=== PATIENT | male | born 1950 | race Caucasian/White ===

== ENCOUNTER → 2020-09-06 | Outpatient (CLI) | payer OTHER ==
[~2020-09-06] VITALS: Ht 165.1 cm; Wt 78.5 kg
[~2020-09-06] MED LIST: ALEVE220 M1 PO; AMBIEN 10 MG TA10 MG PO; ASPIRIN325 PO; DOXYCYCLIN25 MG/5 ML PO; HYDROCHLOROTH12.5 MG PO; HYDROCHLOROTHIA25 M2 PO; IRBESARTAN300 MG PO; LOTENSIN40 MG PO; METROGEL TOP; METROGEL-VAGINA70 GM; NABUMETONE 500500 M1 PO; NIFEDICAL XL60 MG PO; NORVASC10 MG PO; ROSUVASTATIN CA10 MG PO; TRAMADOL 50 MG50 MG PO; ZOCOR 20 MG TAB20 M1
[2020-09-06 13:21] VITALS: BP 147/80
--- NOTE | 2020-09-06 13:50 | NUR ---
Pain Clinic Assessment: 1. History of Osteoarthritis: Right Lower Extremity History of Rheumatoid Arthritis: Not Applicable 2. Height: 5 ft. 5 in. 165.1 cm. Weight: 173.0 lb. oz. 78.472 kg. Patient's BMI: 28.8 3. Vital Signs: BP: 147/80 Pulse: 63 Resp: 14 Temp: 02 Sat: 97 ECG Mon: 4. Pain Intensity: 8 5. Fall Risk: Dizziness: N Needs help standing or walking: N Fallen in the last 3 months: N Fall risk comments: 6. Patient on Blood Thinner: None 7. History of Hypertension: Y 8. Opioid Therapy greater than 6 weeks: N Opiate Contract Signed: 9. Risk Assessment Tool Provided: LOW 10. Functional Assessment Tool: 11. Recreational Drug Use: Past greater than 3 mos Drug Type: MARIJUANA Tobacco Use: Former Smoker Tobacco Type: Cigarettes Amount or Packs/day: 1 How Many Years: 45 Alcohol Use: Yes Frequency: Daily Quant: 1
--- NOTE | 2020-09-13 08:28 | HPC ---
[facility] [place] [address] [place] [address] PAIN MANAGEMENT CONSULTATION Name: LUCY MASCORRO Room #: REG VIN Cardona#: [id number] Admission: 09/06/20 Attend Phys: Maged Jacobs DO Discharge: Date of : 54 Report #: [id number] THIS REPORT FOR: cc: Stan Jaramillo MD,Maged Lynn MD, DO ~ DATE OF SERVICE: 09/06/2020 REFERRING PHYSICIAN: Stan Jaramillo MD CHIEF COMPLAINT: Right hip pain. HISTORY OF PRESENT ILLNESS: As you know, the patient is a very pleasant 70-year-old male referred to our clinic for right hip pain. He states pain is exacerbated with activity such as walking and standing. He believes his pain began on 08/23/2020. He denies injury or trauma. The patient states he is a very active individual, playing organized softball, pickle ball and other team sports. He remains very active for his age range. He states that he has trialed conservative treatments with [id number] medications, rest, relaxation, but no improvement in symptoms. Due to lack of improvement with conservative treatment options, the patient was referred to our clinic to discuss interventional treatments that might be beneficial. The patient has not had any imaging of the right hip. The patient reports today pain is steady with rhythmic exacerbations of symptoms. He states his pain is aching and throbbing in sensation. He places current pain score at 8/10, daily average is 7/10, worst pain has been is 8/10. The patient states pain is exacerbated with sitting and lying down, improves with lying on the right side and repositioning. He has been referred to our clinic to discuss interventional treatment options for suspected right hip osteoarthritis. ALLERGIES: No reported drug allergies. CURRENT MEDICATIONS: Lovastatin 10 mg per day, hydrochlorothiazide 25 mg per day, irbesartan 300 mg once a day, amlodipine 10 mg once a day, zolpidem 10 mg p.o. at bedtime. PAST MEDICAL HISTORY: 1. Hypertension. 2. Degenerative joint disease. 3. Osteoarthritis. 4. Chronic insomnia. 5. Dyslipidemia. [facility] [address] [place] [address] PAIN MANAGEMENT CONSULTATION Name: LUCY MASCORRO Room #: REG [facility]#: [id number] Admission: 09/06/20 Attend Phys: Maged Jacobs DO Discharge: Date of : 54 Report #: [id number] PAST SURGICAL HISTORY: 1. Cholecystectomy. 2. Appendectomy. 3. Open reduction and internal fixation of an ankle, status post injury. SOCIAL HISTORY: The patient denies tobacco, denies IV drug use. He admits to marijuana use. He admits also to 1 alcohol beverage per day. He is retired, retired about 6 years ago. He is unaccompanied at today's visit. He is not in litigation in regards to pain. He is not collecting disability income. REVIEW OF SYSTEMS: Positive only for changes in bowel movements, insomnia, hypertension, dyslipidemia, sexual difficulty and right hip pain. All other review of systems negative per 12-point review of systems other than those listed in history of present illness. Pain impact score 38/70 indicating moderate interference of daily activities secondary to pain. IMAGING: No imaging available. PQRS: The patient has known arthritic changes of bilateral hips, mildly in the knees and lumbar spine. No rheumatoid arthritis. He is placing current pain score at 8/10. He is not a fall risk, has not had a fall in last 3 months. He is not on blood thinners, but he is treated for hypertension. He is not on chronic opioids, but does have a low to moderate opioid addiction potential based on assessment tool. Pain impact 38/70, moderate interference of daily activities secondary to pain. PHYSICAL EXAMINATION: VITAL SIGNS: Blood pressure 147/80, pulse 63, respiratory rate 14 and unlabored. The patient is 97% on room air. Height 5 feet 5 inches tall, weight 173 pounds, BMI calculated 28.8. GENERAL: Well-developed, well-nourished, well-hydrated 70-year-old male appearing stated age. He is placing current pain score at 8/10. HEENT: Normocephalic, atraumatic. Pupils are round. No anisocoria, no constriction or dilation. Extraocular muscles are intact. NEUROLOGIC: Speech is fluent. LUNGS: Clear, no wheeze, rhonchi or rales. CARDIOVASCULAR: Regular. No appreciable gallop or rub. ABDOMEN: Soft, nontender, nondistended. EXTREMITIES: Show no clubbing, no cyanosis, no edema. MUSCULOSKELETAL: The patient has pain elicited with standing from a seated position over the right hip and into the right groin consistent with right hip pathology. The patient has pain also exacerbated with ambulation. He has a positive Nabil's test. Negative seated straight leg raising. Negative supine straight leg raising. Modified Gaenslen's positive for some axial low back [facility] [address] [place] [address] PAIN MANAGEMENT CONSULTATION Name: LUCY MASCORRO Room #: REG Lázaro Adams#: [id number] Admission: 09/06/20 Attend Phys: Maged Jacobs DO Discharge: Date of : 54 Report #: [id number] pain. Ankle clonus negative. Babinski is negative. He is able to toe walk, heel walk with assistance. ASSESSMENT: 1. Severe right hip osteoarthritis. 2. Right hip pain. 3. Intermittent low back pain. 4. Myofascial pain of the lumbar spine. 5. Lumbar facet arthropathy. PLAN: 1. Based on today's physical exam and history the patient has provided, the description the patient uses in regards to pain as well as location of symptoms, it would appear he is suffering from right hip pathology. The severity of the hip findings by physical exam would appear to be fairly severe. I would recommend evaluation of the right hip with x-ray imaging to confirm the level of pathology that is present. The patient's report of symptoms and distribution of pain is consistent with right hip osteoarthritic changes, though there could be significant joint loss and treatment options would be based on those x-ray findings. We did discuss with the patient treatment options we have available. Following was discussed with the patient today. 2. We discussed physical therapy, stretching exercises and mobility techniques to assist in pain control. We discussed medication management utilizing nonsteroidal anti-inflammatory on a consistent basis. We discussed intra-articular hip injection as a way to treat the symptoms directly. We also discussed total hip arthroplasty, which if his severity of osteoarthritis is as expected by physical examination, there is a strong possibility he would need to undergo total hip arthroplasty. The patient is agreeable to further evaluation and to return for an intra-articular hip injection as early as tomorrow. 3. The patient will undergo x-ray imaging of the right hip today. We will review those findings. We should have those available when the patient returns tomorrow for an intra-articular hip injection. 4. The patient was established an appointment on Saturday, 09/07, to undergo a right intra-articular hip injection under fluoroscopic guidance. We wish to contact the patient's third democrat payer to confirm that authorization can be obtained for him to undergo this procedure. We have plans to see him back tomorrow. We will review the x-ray imaging at that visit. 5. We made no changes in medication management at today's visit. We recommend continuation of current therapy. We may adjust those medications later depending on his efficacy with the intra-articular hip injection. 6. We wish to thank Dr. Jaramillo for the opportunity to see this patient in consultation. We will keep you apprised of response [place] [address] PAIN MANAGEMENT CONSULTATION Name: LUCY MASCORRO Room #: REG CLLázaro Cardona#: [id number] Admission: 09/06/20 Attend Phys: Maged Jacobs DO Discharge: Date of : 54 Report #: [id number] severe right osteoarthritic hip pain. Again, we wish to thank you for the opportunity to see the patient in consultation. <ELECTRONICALLY SIGNED> By: Maged Jacobs DO 09/13/20 0828 [id number] Maged Jacobs DO /juanis
== END ==
LOC: PAIN 06:55
PROVIDERS: ATTEND Anesthesiology Pain Medicine
DX: M16.11 Unilateral primary osteoarthritis, right hip (principal); I10 Essential (primary) hypertension; Z90.49 Acquired absence of other specified parts of digestive tract

== ENCOUNTER → 2020-09-07 | Outpatient (CLI) | payer OTHER ==
[~2020-09-07] VITALS: Ht 165.1 cm; Wt 78.5 kg
[2020-09-07 15:06] VITALS: BP 153/74
--- NOTE | 2020-09-07 15:15 | NUR ---
Pain Clinic Assessment: 1. History of Osteoarthritis: Right Lower Extremity History of Rheumatoid Arthritis: Not Applicable 2. Height: 5 ft. 5 in. 165.1 cm. Weight: 173.0 lb. oz. 78.472 kg. Patient's BMI: 28.8 3. Vital Signs: BP: 153/74 Pulse: 71 Resp: 18 Temp: 02 Sat: 97 ECG Mon: 4. Pain Intensity: 4 5. Fall Risk: Dizziness: N Needs help standing or walking: N Fallen in the last 3 months: N Fall risk comments: 6. Patient on Blood Thinner: None 7. History of Hypertension: Y 8. Opioid Therapy greater than 6 weeks: N Opiate Contract Signed: 9. Risk Assessment Tool Provided: LOW 10. Functional Assessment Tool: 11. Recreational Drug Use: Past greater than 3 mos Drug Type: Tobacco Use: Former Smoker Tobacco Type: Amount or Packs/day: How Many Years: Alcohol Use: Yes Frequency: Quant:
--- NOTE | 2020-09-13 09:40 | HPC ---
[facility] [place] [address] PAIN MANAGEMENT CONSULTATION Name: LUCY MASCORRO Room #: REG VIN Cardona#: [id number] Admission: 09/07/20 Attend Phys: Maged Jacobs DO Discharge: Date of : 54 Report #: [id number] THIS REPORT FOR: cc: Stan Jaramillo MD, Charles W. MD Johnson, James E. DO ~ DATE OF SERVICE: 09/07/2020 REFERRING PHYSICIAN: Stan Jaramillo MD CHIEF COMPLAINT: Right hip pain. HISTORY OF PRESENT ILLNESS: As you know, the patient is a 70-year-old male seen in consultation yesterday for right hip pain. He was complaining of pain level of 3/10, exacerbated with activities. We sent the patient for x-ray imaging, which showed severe right hip osteoarthritis without acute fracture or dislocation, but there was also noted severe joint space narrowing. He returns today to review those findings and to discuss the possibility of undergoing intra-articular hip injection. He is placing his pain around 4/10. Pain is exacerbated with walking and standing, improves with lying down and sitting down. He has not had any changes in medical history since our last visit. He returns today for an intra-articular hip injection. ALLERGIES: No reported drug allergies. CURRENT MEDICATIONS: Zolpidem, amlodipine, irbesartan, hydrochlorothiazide, lovastatin. SOCIAL HISTORY: The patient denies tobacco, alcohol, IV or illicit drug use. He is unaccompanied today. IMAGING: No new imaging available. PQRS: The patient has known arthritic changes of the bilateral hips, lumbar spine. No rheumatoid arthritis. He is placing current pain score 4/10. He is not a fall risk, has not had a fall in last 3 months. He is not on blood thinners, but is treated for hypertension. He is not on chronic opioids and has a low opiate addiction potential. Pain impact today , [id number] interference of daily activities secondary to pain. PHYSICAL EXAMINATION: VITAL SIGNS: Blood pressure 153/74, pulse 71, respiratory rate 18 and unlabored. The patient is 97% on room air. Height 5 feet 5 inches tall, weight 173 pounds and BMI calculated 28.8. GENERAL: Well-developed, well-nourished, well-hydrated 70-year-old male [address] [address] PAIN MANAGEMENT CONSULTATION Name: LUCY MASCORRO Room #: REG VIN Brendan#: [id number] Admission: 09/07/20 Attend Phys: Maged Jacobs DO Discharge: Date of : 54 Report #: [id number] appearing stated age, placing current pain score at 4/10. HEENT: Normocephalic, atraumatic. Pupils equal, round and reactive. EXTREMITIES: Show no clubbing, no cyanosis, no edema. MUSCULOSKELETAL: Lower extremity strength appears symmetrical 5/5. Slight changes in strength with hip flexion on the right when compared to left due to increasing pain. Nabil's test is positive on the right, negative left. Gait is mildly antalgic favoring right lower extremity. ASSESSMENT: 1. Right hip pain. 2. Right hip severe osteoarthritis. PLAN: 1. The patient returns today in followup visit where we have reviewed his recent x-ray imaging. I have advised the patient of the findings of severe right hip joint osteoarthritis and severe right hip joint space narrowing, greatest along the superior lateral margin of the hip with sclerotic changes to the bony structures. The patient and I discussed what those findings mean in the long-term. I do feel ultimately the patient will need total hip arthroplasty. The patient and I discussed this at length today. He is here today to undergo an intra-articular hip injection in hopes of improving pain at this time with plans to possibly move forward with surgery if injections do not provide management of his symptoms. I am in agreement with the patient's plan. I do feel that conservative treatment is best initially. If this is unsuccessful, then move forward with permanent addressing with a total hip arthroplasty. 2. The patient has been advised risks and benefits of an intra-articular hip injection. These risks include but are not necessarily limited to bleeding, bruising, infection, worsening pain, no relief of pain, also risk of temporary or permanent muscle weakness, temporary or permanent joint damage and . The patient states understood and wished to proceed. 3. No medication changes made at today's visit. The patient will continue current medical therapy as prior prescribed. 4. We plan to see the patient back in followup visit on an as needed basis. We are hopeful the injection will provide good and prolonged benefit. We will see him back as needed. DESCRIPTION OF PROCEDURE: Right intra-articular hip injection under fluoroscopic guidance. After obtaining written consent, the patient was taken back to fluoroscopy suite, placed in supine position with pillow under knees for comfort. The image intensifier (C-arm) was then brought into position over the right hip and AP imaging was obtained. Skin overlying the area was then prepped and draped in aseptic fashion using chlorhexidine. A sterile marker was then placed over the injection site. A 27-gauge 1-1/4 inch needle was then used to anesthetize skin [address] [address] PAIN MANAGEMENT CONSULTATION Name: LUCY MASCORRO Room #: [facility]#: [id number] Admission: 09/07/20 Attend Phys: Maged Jacobs DO Discharge: Date of : 54 Report #: [id number] and subcutaneous tissue with 2 mL of 1% preservative-free lidocaine. A 22-gauge 3-1/2 inch spinal needle with bent tip was advanced towards the proximal head of the right femur. The needle was advanced until reaching the osseous structure. Needle was then retracted approximately 1 mm and aspiration was noted to be negative for heme. Next, 1 mL of Omnipaque was injected demonstrating an excellent right hip arthrogram. After negative aspiration for heme, 4 mL of solution containing 1 mL 40 mg per mL, 40 mg total triamcinolone along with 3 mL of bupivacaine 0.5% was injected slowly. Needle was retracted mcc, flushed with 1 mL of 1% lidocaine and removed. Sterile bandage placed over injection site. There were no new motor deficits present in the right lower extremity following procedure. The patient tolerated procedure well, carefully escorted to recovery room in stable condition. No apparent complications. After meeting discharge criteria, the patient discharged home. <ELECTRONICALLY SIGNED> By: Maged Jacobs DO 09/13/20 0940 [id number] Maged Jacobs DO /nt
== END | disposition home or self-care (01) ==
LOC: PAIN 06:57
PROVIDERS: ATTEND Anesthesiology Pain Medicine
DX: M25.551 Pain in right hip (principal); M16.11 Unilateral primary osteoarthritis, right hip; I10 Essential (primary) hypertension; M19.90 Unspecified osteoarthritis, unspecified site; Z98.890 Other specified postprocedural states; Z79.899 Other long term (current) drug therapy